=== PATIENT | male | born 1985 | race African-American/Black ===

== ENCOUNTER 2016-12-06 22:46 | Emergency (ER) | payer SELFPAY ==
[~2016-12-06] VITALS: Ht 185.4 cm; Wt 120.0 kg
[~2016-12-06 22:46] MED LIST: PRED50 PO
[2016-12-06 22:50] VITALS: BP 130/90; PULSE 93; RESP 14; TEMP 97.5; O2SAT 97
[2016-12-07] MEDS ORDERED: KETOROLAC TROMETHAMINE 30 MG/ML (IVP) VIAL IV PUSH ONE (00:30)
[2016-12-07] MEDS ORDERED: ORPHENADRINE INJ 60 MG/2 ML AMP IM ONE (00:30)
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
[2016-12-07 01:06] LABS: BLOOD, URINE NEG (NEG); COMMENT (UR) CULTURE INDICATED; CULTURE IF INDICATED CULTURE INDICATED; GLUCOSE,URINE NEG (NEG); KETONE, URINE NEG (NEG); NITRITE,URINE NEG (NEG); SQUAMOUS EPITHELIAL CELL URINE 1 /hpf (0-5); URINE COLOR YELLOW (YELLW/STRAW)
[2016-12-07] MEDS ORDERED: IBUP800T23 PO (01:48)
[2016-12-07] MEDS ORDERED: BACT800T5 PO (01:48)
[2016-12-07] MEDS ORDERED: CYCL1TAB29 PO (01:48)
[2016-12-07 02:05] VITALS: RESP 18
== END 2016-12-07 02:16 | disposition home or self-care (01) ==
LOC: NEPC 22:46
DX: N39.0 Urinary tract infection, site not specified (principal); B96.89 Other specified bacterial agents as the cause of diseases classified elsewhere
CPT/HCPCS: 81001; 87086; 96372; 96374; 99283; J1885; J2360

== ENCOUNTER 2017-02-17 23:20 | Emergency (ER) | payer SELFPAY ==
[~2017-02-17] VITALS: Ht 180.3 cm; Wt 88.0 kg
[~2017-02-17 23:20] MED LIST changes: +BACT800T5 PO; +CYCL1TAB29 PO; +IBUP800T23 PO; -PRED50 PO
[2017-02-17 23:23] VITALS: BP 130/68; PULSE 111; RESP 16; TEMP 98.6; O2SAT 97
[2017-02-18] MEDS ORDERED: DICL75TA PO (00:23)
[2017-02-18] MEDS ORDERED: CYCL1TAB29 PO (00:23)
--- NOTE | 2017-02-18 00:27 | PD ---
HPI Chief Complaint: Back/ Neck Pain or Injury Time Seen by Provider: 00:23 Travel History International Travel<30 days: No Contact w/Intl Traveler<30days: No Traveled to known affect area: No History of Present Illness HPI 31-year-old black male presents to emergency bar with complaints of left lower back pain as well as intermittent pain in his right hand. He states that he's had symptoms on and off now for several months. He states the pain in his back is worse when he bends and moves. 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 He denies any direct trauma. He occasionally has tingling in his thumb and index finger. [facility] Past Medical History Narrative Medical Chronic back pain Autoimmune Disease: No Cancer: No Cardiovascular Problems: No Cerebrovascular Accident: No Diabetes: No Diminished Hearing: No Endocrine: No Gastrointestinal Disorders: No Genitourinary: No Headaches: No Immune Disorder: No Implanted Vascular Access Dvce: No Musculoskeletal: No Neurologic: Yes Psychiatric: No Respiratory: No Immunizations Current: Yes Migraines: No Seizures: No Thyroid Disease: No Tetanus Vaccination: < 5 Years Influenza Vaccination: Yes Past Surgical History Other Surgery: No Social History Alcohol Use: Yes (OCCASIONAL) Tobacco Use: Yes (1/2 PPD) Substance Use: Yes (MARIJUANA) Allergies-Medications (Allergen,Severity, Reaction): Coded Allergies: No Known Allergies (Verified , 02/18/17) Reported Meds & Prescriptions Reported Meds & Active Scripts Active Review of Systems Except as stated in HPI: all other systems reviewed are Neg Physical Exam Narrative GENERAL: Well-developed, well-nourished in no apparent distress. Nontoxic appearing. HEAD: Normocephalic, atraumatic. EYES: Pupils equal round and reactive. Extraocular motions intact. No scleral icterus. No injection or drainage. ENT: Nose clear. Throat without erythema, tonsillar hypertrophy or exudate. Uvula midline. Airway patent. NECK: Trachea midline. Supple, nontender, moves head freely. No central bony tenderness or spasm. CARDIOVASCULAR: Regular rate and rhythm without murmurs, gallops, or rubs. RESPIRATORY: Clear to auscultation. Breath sounds equal bilaterally. No wheezes , rales, or rhonchi. GASTROINTESTINAL: Abdomen soft, non-tender, nondistended. No hepato-splenomegaly , or palpable masses. No guarding. EXTREMITIES: No clubbing, cyanosis, or edema. No joint tenderness. Tenderness to the thenar eminence and interdigital space of the thumb and index finger. He complains of hypoesthesia to the ulnar aspect of the thumb and in radial aspect of the index finger. He has good Refill. He has nail fungus in all fingers. Negative pain in the wrist. BACK: Nontender without deformity. No flank tenderness. Mild left lower lumbar tenderness. Moves freely. No saddle anesthesia. NEUROLOGICAL: Awake, alert and oriented x 3 .Cranial nerves grossly intact. Motor and sensory grossly within normal limits. Normal speech. Data Data Last Documented VS Vital Signs Date Time Temp Pulse Resp B/P Pulse Ox O2 Delivery O2 Flow Rate FiO2 02/17/17 23:23 98.6 111 16 130/68 97 MDM Medical Decision Making Medical Screen Exam Complete: Yes Emergency Medical Condition: Yes Medical Record Reviewed: Yes Differential Diagnosis Differential diagnoses: Acute back pain, chronic back pain, carpal tunnel, neurapraxia, sprain, tendinitis Narrative Course Patient is given diclofenac and Flexeril. This is acute exacerbation of lower back pain, right hand pain rule out carpal tunnel Diagnosis Primary Impression: Acute exacerbation of chronic low back pain Additional Impression: right-hand pain rule out carpal tunnel Patient Instructions: General Instructions Additional Instructions: Rest. Ice for the next 3 days followed by heat . Flexeril and Voltaren. Follow-up with a primary care doctor in one week. Return to the ER for emergencies. Med/Other Pt SpecificInfo: Prescription(s) given Scripts Cyclobenzaprine (Flexeril)10 Mg Tab10 Mg PO TID #30 TAB Prov:Lauren Figueredo DO 02/18/[address] 75 Mg Tabdr75 Mg PO BID #30 TAB Prov:Lauren Figueredo DO 02/18/17 Disposition: 01 DISCHARGE HOME Condition: Stable Prashanth Garcia February 18, 2017 00:26
== END 2017-02-18 00:46 | disposition home or self-care (01) ==
LOC: NEPK 23:20
DX: M54.5 Low back pain (principal); G89.29 Other chronic pain; M79.641 Pain in right hand; F17.210 Nicotine dependence, cigarettes, uncomplicated; F12.90 Cannabis use, unspecified, uncomplicated
CPT/HCPCS: 99283